=== PATIENT | male | born 1940 | race Caucasian/White ===

== ENCOUNTER 2022-09-29 12:35 | Emergency (ER) | payer MEDICARE ==
--- NOTE | 2022-09-29 13:24 | ED ---
General Adult HPI - General Chief complaint: Fall Stated complaint: Broken Finger, Finger injury Time Seen by Provider: 09/29/22 12:58 Source: patient, RN notes reviewed Mode of arrival: ambulatory Limitations: no limitations - History of Present Illness Initial comments: Patient is a pleasant 82-year-old male presenting to the emergency department with concern for left small finger injury. Patient was walking the dogs he slipped on the cement and landed on his left small finger. Patient did notice some bleeding. Patient is concerned of deformity. No other area of injury or concern. Last tetanus immunization is less than 5 years. - Related Data Allergies Allergy/AdvReac Type Severity Reaction Status Date / Time No Known Allergies Allergy Verified 09/29/22 13:22 Review of Systems ROS Statement: Those systems with pertinent positive or pertinent negative responses have been documented in the HPI. ROS Other: All systems not noted in ROS Statement are negative. Constitutional: Denies: fever Eyes: Denies: eye pain ENT: Denies: ear pain Respiratory: Denies: cough, dyspnea Cardiovascular: Denies: chest pain Endocrine: Denies: fatigue Gastrointestinal: Denies: abdominal pain Genitourinary: Denies: dysuria Musculoskeletal: Reports: as per HPI Past Medical History Past Medical History: Cancer, Hyperlipidemia Additional Past Medical History / Comment(s): skin cancer History of Any Multi-Drug Resistant Organisms: None Reported Additional Past Surgical History / Comment(s): rt ear surgery for skin cancer Past Psychological History: No Psychological Hx Reported Smoking Status: Never smoker Past Alcohol Use History: None Reported Past Drug Use History: None Reported General Exam Limitations: no limitations General appearance: alert, in no apparent distress Head exam: Present: normocephalic Eye exam: Present: normal appearance Neck exam: Present: normal inspection. Absent: tenderness Respiratory exam: Present: normal lung sounds bilaterally Cardiovascular Exam: Present: regular rate, normal rhythm GI/Abdominal exam: Present: soft. Absent: tenderness Extremities exam: Present: other (Left small finger with hyperextension near the PIP there is a small area of disruption of the skin on the palmar side, less than 1 cm) Neurological exam: Present: alert. Absent: motor sensory deficit Psychiatric exam: Present: normal affect, normal mood Skin exam: Present: normal color Course Vital Signs 09/29/22 12:45 Temperature 98.2 F Pulse Rate 54 L Respiratory 20 Rate Blood Pressure 138/79 O2 Sat by Pulse 100 Oximetry Procedures - Nerve Block Consent Obtained: verbal consent Local Anesthetic Used: Other (Left small finger digital block) Side: left Nerve Blocks: digital Procedure Successful: Yes Patient Tolerated Procedure: well, no complications - Orthopedic Joint Reduction Joint #1 Consent Obtained: verbal consent Side: left Joint Reduction Location: finger Analgesia: digital block Local Anesthetic Used: Lidocaine 1% Technique Used: traction/counter-traction Post-Reduction Neuro Exam: intact Post-Reduction Vascular Exam: intact Post Reduction X-Ray Obtained: No Splint Applied: Yes Patient Tolerated Procedure: well, no complications - Orthopedic Splinting/Casting Injury #1 Side: left Upper Extremity Injury Location: finger (Small finger splint) Medical Decision Making - Medical Decision Making Was pt. sent in by a medical professional or institution (MELINDA Kimble, PHYSICAL MEDICINE PHYSICIAN, urgent care, hospital, or jail...) When possible be specific @ -No Did you speak to anyone other than the patient for history (EMS, parent, family, police, friend...)? What history was obtained from this source @ - is present and helps confirm history Did you review nursing and triage notes (agree or disagree)? Why? @ -I reviewed and agree with nursing and triage notes Were old charts reviewed (outside hosp., previous admission, EMS record, old EKG, old radiological studies, urgent care reports/EKG's, jail records)? Report findings @ -No old charts were reviewed Differential Diagnosis (chest pain, altered mental status, abdominal pain women, abdominal pain men, vaginal bleeding, weakness, fever, dyspnea, syncope, headache, dizziness, GI bleed, back pain, seizure, CVA, palpatations, mental health, musculoskeletal)? @ -Differential Musculoskeletal Muscular strain, contusion, ligament sprain, fracture, arthritis, septic arthritis, bursitis, cellulitis, muscle spasm, nerve compression, DVT, arterial occlusion, herpes zoster, electrolyte abnormality, tumor.... This is not meant to be in all inclusive list EKG interpreted by me (3pts min.). @ -As above X-rays interpreted by me (1pt min.). @ -X-ray left hand shows displacement distal and mid phalanx at the DIP small finger CT interpreted by me (1pt min.). @ -None done U/S interpreted by me (1pt. min.). @ -None done What testing was considered but not performed or refused? (CT, X-rays, U/S, labs)? Why? @ -None What meds were considered but not given or refused? Why? @ -None Did you discuss the management of the patient with other professionals (professionals i.e. , PA, PHYSICAL MEDICINE PHYSICIAN, lab, RT, psych nurse, social worker school, dry wall plasterer, teacher, financial officer, case making machine operator)? Give summary @ -No Was smoking cessation discussed for >3mins.? @ -No Was critical care preformed (if so, how long)? @ -No Were there social determinants of health that impacted care today? How? (Homelessness, low income, unemployed, alcoholism, drug addiction, transportation, low edu. Level, literacy, decrease access to med. care, nursing home, rehab)? @ -No Was there de-escalation of care discussed even if they declined (Discuss DNR or withdrawal of care, Hospice)? DNR status @ -No What co-morbidities impacted this encounter? (DM, HTN, Smoking, COPD, CAD, Cancer, CVA, ARF, Chemo, Hep., AIDS, mental health diagnosis, sleep apnea, morbid obesity)? @ -None Was patient admitted / discharged? Hospital course, mention meds given and route, prescriptions, significant lab abnormalities, going to OR and other pertinent info. @ -X-rays were done and finger was reduced. Digital block was done and splint was placed following this. Patient did have small open area and therefore will be covered with antibiotics. Patient will also recommend follow-up with orthopedics. Following procedure patient does have good movement of the finger and good strength against resistance. Prior to digital block patient did have good sensation. Refill remains intact. Undiagnosed new problem with uncertain prognosis? @ -No Drug Therapy requiring intensive monitoring for toxicity (Heparin, Nitro, Insulin, Cardizem)? @ -No Were any procedures done? @ -Digital block, reduction, splint placement small finger. See above for all Diagnosis/symptom? @ -Dislocation left small finger Acute, or Chronic, or Acute on Chronic? @ -Acute Uncomplicated (without systemic symptoms) or Complicated (systemic symptoms)? @ -default Side effects of treatment? @ -No Exacerbation, Progression, or Severe Exacerbation? @ -No Poses a threat to life or bodily function? How? (Chest pain, [place], [place], pneumonia, PE, COPD, DKA, ARF, appy, cholecystitis, CVA, Diverticulitis, Homicidal, Suicidal, threat to staff... and all critical care pts) @ -No Disposition Clinical Impression: Dislocation, finger Disposition: HOME SELF-CARE Condition: Stable Instructions (If sedation given, give patient instructions): Finger Dislocation (ED) Additional Instructions: Please do follow-up with orthopedic and primary care physician in the next couple days for recheck. Prescription sent to pharmacy. Please return for increased pain, finger problems, weakness, redness or swelling, worsening symptoms or other concerns Is patient prescribed a controlled substance at d/c from ED?: No Referrals: Naveen Maxwell MD [STAFF PHYSICIAN] - 1-2 days Christophe Luke DO [Doctor of Osteopathic Medicine] - 1-2 days Time of Disposition: 13:56
--- NOTE | 2022-09-29 13:31 | XR ---
EXAMINATION TYPE: XR hand complete LT DATE OF EXAM: 09/29/2022 COMPARISON: NONE HISTORY: Pain TECHNIQUE: Three views are submitted. FINDINGS: There is dislocation of the middle phalanx relative proximal phalanx fifth digit. Diffuse osteopenia. There is a remote trauma involving the distal radius with arthropathy of the radi ocarpal joint. The first MCP joint and first carpometacarpal joint mild arthropathy. No definite acute fracture. IMPRESSION: 1. There appears to be a dislocation of the middle and distal phalanx fifth digit relative to the pro ximal phalanx.
[2022-09-29] MEDS ORDERED: LIDOCAINE 1% INJ 10MG/ML (20 ML MDV) SQ ONE (13:52)
[2022-09-29 14:27] VITALS: BP 134/78; PULSE 60; RESP 16; TEMP 98
== END 2022-09-29 14:27 | disposition home or self-care (01) ==
LOC: EC 12:35
DX: S63.283A Dislocation of proximal interphalangeal joint of left middle finger, initial encounter (principal); S63.287A Dislocation of proximal interphalangeal joint of left little finger, initial encounter; W01.0XXA Fall on same level from slipping, tripping and stumbling without subsequent striking against object, initial encounter; Y93.01 Activity, walking, marching and hiking
CPT/HCPCS: 73130; 99283; 26770; J2001